=== PATIENT | male | born 1990 | race Caucasian/White ===

== ENCOUNTER → 2024-09-05 | Outpatient (REF) | payer OTHER | LOC: M SFHCDERM 08:39 | PROVIDERS: ATTEND Nurse Practitioner Family | DX: L72.0 Epidermal cyst (principal) ==

== ENCOUNTER → 2024-10-26 | Outpatient (REF) | payer OTHER | LOC: M SMT 13:09 | PROVIDERS: ATTEND Urology | DX: Z30.2 Encounter for sterilization (principal) ==

== ENCOUNTER 2025-03-26 12:08 | Emergency (ER) | payer OTHER ==
[~2025-03-26] VITALS: Ht 182.9 cm; Wt 93.1 kg
[2025-03-26] MEDS ORDERED: ALBU8.5H INH (12:53)
[2025-03-26] MEDS ORDERED: ALLE180T33 PO (12:53)
[2025-03-26] MEDS ORDERED: APAP325T4 PO (12:53)
[2025-03-26] MEDS ORDERED: FLUT1BLS IH (12:53)
[2025-03-26] MEDS ORDERED: CVS1CRE47 TOP (12:54)
[2025-03-26 14:03] VITALS: BP 135/86; TEMP 97.9; O2SAT 100
[2025-03-26] MEDS: TETRACAINE 0.5% OPHTH SOLN 4ML OS ONE (14:33)
[2025-03-26] MEDS: FLUORESCEIN OPHTH 1 MG STRIP OS ONE (14:33)
[2025-03-26] MEDS ORDERED: VALA1TAB5 PO (15:21)
== END 2025-03-26 15:41 | disposition home or self-care (01) ==
LOC: M ED 12:08
DX: B02.8 Zoster with other complications (principal); F41.9 Anxiety disorder, unspecified; F32.A Depression, unspecified; J45.909 Unspecified asthma, uncomplicated; F10.10 Alcohol abuse, uncomplicated; Z79.1 Long term (current) use of non-steroidal anti-inflammatories (NSAID); Z79.52 Long term (current) use of systemic steroids; Z79.899 Other long term (current) drug therapy